=== PATIENT | female | born 1995 | race African-American/Black ===

== ENCOUNTER 2017-03-15 12:02 | Inpatient (IN) ==
[2017-03-15] MEDS ORDERED: ZOFRAN IV PRN (21:29)
[2017-03-15] MEDS ORDERED: STADOL IV PRN ×2 (21:29)
[2017-03-15] MEDS ORDERED: AMBIEN PO PRN (21:29)
[2017-03-15] MEDS ORDERED: PEPCID PO PRN (21:29)
[2017-03-15] MEDS ORDERED: PITOCIN 30 UNITS/LR 30 UNITS/500 ML IV.SOLN IV SCH (21:29)
[2017-03-15] MEDS ORDERED: TYLENOL PO PRN (21:29)
[2017-03-15] MEDS ORDERED: BRETHINE SUBQ PRN (21:29)
[2017-03-15] MEDS ORDERED: PEPCID IV PRN (21:29)
[2017-03-15] MEDS ORDERED: KEFZOL 1 GM/D5W 1 GM/50 ML IVPB IV PRN (21:29)
[2017-03-15] MEDS: LR 1,000 ML IV ONE (21:30)
[2017-03-15 22:28] LABS: URINE SOURCE VOIDED
[2017-03-15 22:28] LABS: MANUAL DIFF NEEDED? NO
[2017-03-15 22:31] LABS: BASO% 0.2 % (0.0-0.8); EOS# 0.04 X1000 (0.0-0.7); EOS% 0.4 % (0.0-10.0); HEMOGLOBIN 11.9 g/dL (12.0-16.0); IMM GRAN# 0.06 X1000 (0.0-0.04); IMM GRAN% 0.7 % (0.0-0.5); LYMPH# 2.18 X1000 (1.2-3.4); LYMPH% 24.1 % (20.5-51.1); MCH 30.7 PG (27-31); MCV 90.2 FL (81-99); MONO# 1.21 X1000 (0.11-0.59); MONO% 13.4 % (1.7-9.3); MPV 11.4 FL (7.4-10.4); NEUT% 61.2 % (42.2-75.2); PLT 234 X1000 (130-400); RBC 3.88 XMIL (4.2-5.4)
[2017-03-15 22:44] LABS: UR AMPHETAMINES QUAL NONE DETECTED (NONE DETECT); UR BARBITUATES QUAL NONE DETECTED (NONE DETECT); UR BENZODIAZEPIN QUAL NONE DETECTED (NONE DETECT); UR CANNABINOIDS QUAL NONE DETECTED (NONE DETECT); UR COCAINE QUAL NONE DETECTED (NONE DETECT); UR MDMA QUAL NONE DETECTED (NONE DETECT); UR METHADONE QUAL NONE DETECTED (NONE DETECT); UR METHAMPHETAMINE QUAL NONE DETECTED (NONE DETECT); UR OPIATES QUAL NONE DETECTED (NONE DETECT); UR OXYCODONE QUAL NONE DETECTED (NONE DETECT); UR PCP QUAL NONE DETECTED (NONE DETECT); UR TCA QUAL NONE DETECTED (NONE DETECT)
[2017-03-15 22:57] LABS: BILIRUBIN URINE NEGATIVE (NEGATIVE); BLOOD URINE NEGATIVE (NEGATIVE); CLARITY CLEAR (CLEAR); COLOR YELLOW; GLUCOSE URINE NEGATIVE (NEGATIVE); LEUKOCYTES URINE NEGATIVE (NEGATIVE); NITRITE URINE NEGATIVE (NEGATIVE); PH URINE 6.5; PROTEIN URINE NEGATIVE (NEGATIVE); SP GRAVITY URINE 1.015; UROBILINOGEN URINE NORMAL
[2017-03-15] MEDS ORDERED: CYTOTEC PO ONE (23:00)
[2017-03-16] MEDS: STADOL IV PRN ×2 (00:22→03:02)
[2017-03-16] MEDS: CYTOTEC PO SCH ×2 (06:38→06:39)
[2017-03-16] MEDS ORDERED: FENTANYL-BUPIV-NS 2 MCG-0.1% 200 ML EPIDURAL PRN (07:11)
[2017-03-16] MEDS: LR 1,000 ML IV ONE ×2 (07:30→08:27)
--- NOTE | 2017-03-16 08:18 | HISTORY AND PHYSICAL ---
CHIEF COMPLAINT: Induction of labor. HISTORY OF PRESENT ILLNESS: The patient is a 21-year-old, G1, P0, who today is at 40 weeks and 5 days by last menstrual period, consistent with a 17 week ultrasound, who presented last night, on March 15, for a routine scheduled induction with Cytotec. She was admitted and did receive Cytotec and was started on Pitocin this morning. She is currently 6 cm per the RN the last cervical exam and she is complaining of nausea and pain with contractions. She does desire an epidural. She has not broken her water. Baby is moving well. She has no other complaints at this time. PAST MEDICAL HISTORY: Significant for anemia of . SURGICAL HISTORY: Oral surgery x2, including wisdom teeth and a tooth removal. MEDICATIONS: She is not taking any. ALLERGIES: No known drug allergies. FAMILY HISTORY: Significant for mother with high blood pressure. SOCIAL HISTORY: She denies alcohol use. Denies current drug use, though had admitted to marijuana in the past. Tobacco use: Is a former smoker, but she admitted approximately twice a month. She currently lives with her boyfriend and is unemployed. PRIMARY CARE PHYSICIAN: [facility]. REVIEW OF SYSTEMS: Negative, except as noted above. PERTINENT LABS: GBS is negative. Quad screen was low risk. She passed her glucose tolerance test at 64. RPR was nonreactive. Blood type is O positive, antibody negative. Rubella immune. Gonorrhea and Chlamydia negative. Urine drug screen was negative. PHYSICAL EXAMINATION: VITAL SIGNS: Temperature 98.5 degrees, blood pressure 127/71, heart rate 72. GENERAL APPEARANCE: The patient is awake, alert, oriented, in moderate distress with contractions. The patient is currently vomiting. ABDOMEN: Soft, gravid, and nontender. PELVIC: Cervical examination at this time was deferred, but per RN report is 6 cm, 100% effaced, and -1 station. EXTREMITIES: No clubbing, cyanosis, or edema. NST 110s, moderate variability, and reactive with early decelerations and irregular contractions. ASSESSMENT AND PLAN: A 21-year-old, G1, at 40 weeks and 5 days for induction of labor. Will allow her to get an epidural and then plan to artificially rupture membranes afterwards and continue with current management. cc: MD FAUSTO Ibarra
[2017-03-16] MEDS ORDERED: MINERAL OIL ONE (08:36)
[2017-03-16] MEDS ORDERED: XYLOCAINE-MPF 1% INJ ONE (08:37)
[2017-03-16] MEDS ORDERED: HYDROXYZINE PO PRN (11:20)
[2017-03-16] MEDS ORDERED: BOOSTRIX VACCINE IM ONE (11:20)
[2017-03-16] MEDS ORDERED: PITOCIN 30 UNITS/LR 30 UNITS/500 ML IV.SOLN IV ONE (11:20)
[2017-03-16] MEDS ORDERED: MINERAL OIL PO PRN (11:20)
[2017-03-16] MEDS ORDERED: M-M-R II VACCINE SUBQ ONE (11:20)
[2017-03-16] MEDS ORDERED: HYDROXYZINE IM PRN (11:20)
[2017-03-16] MEDS ORDERED: BENADRYL IV PRN (11:20)
[2017-03-16] MEDS ORDERED: PITOCIN 20 UNITS/LR 20 UNITS/1,000 ML IV.SOLN IV SCH (11:20)
[2017-03-16] MEDS ORDERED: AMBIEN PO PRN (11:20)
[2017-03-16] MEDS ORDERED: CYTOTEC PO PRN (11:20)
[2017-03-16] MEDS ORDERED: PITOCIN IM PRN (11:20)
[2017-03-16] MEDS ORDERED: BENADRYL PO PRN (11:20)
[2017-03-16] MEDS ORDERED: PERI MEDS (DERMOPLAST/NUPERCAINAL/TUCKS) MISC PRN (11:20)
[2017-03-16] MEDS ORDERED: XYLOCAINE-MPF 1% INJ PRN (11:20)
[2017-03-16] MEDS: MOTRIN PO PRN (12:57)
--- NOTE | 2017-03-16 16:38 | OPERATIVE NOTE ---
PROCEDURE DATE: 03/16/2017 PRE-PROCEDURE DIAGNOSES: 1. 1 at 40 weeks and 5 days. 2. Elective induction of labor. POSTPROCEDURE DIAGNOSES: 1. 1, para 1. 2. Status post spontaneous vaginal delivery. HOSPITAL COURSE: The patient was admitted last night and received 1 dose of Cytotec, and changed her cervix very well. In the morning, she was noted to be 6 cm, 100% and -1 station. She was started on Pitocin briefly, but then this was discontinued as she was able to maintain a good labor pattern without it. She underwent SROM at around 9:10 in the morning, and then advanced to complete through epidural anesthesia. She pushed for a short period of time and then delivered a vigorous male infant over intact perineum through controlled spontaneous vaginal delivery. Body cord x1 was reduced after delivery. Baby was bulb-suctioned and cord was clamped and cut, and baby was handed off to waiting nursery staff. Cord blood was obtained and placenta was then gently massaged from the uterus. The placenta was noted to be intact. Fundus was noted to be firm. Estimated blood loss less than 300 mL. Her vagina, cervix and rectum were inspected for any lacerations, and none were found. The patient tolerated procedure well. All sponge, lap, and needle counts were correct x2, and the patient went to her room in stable condition. cc: Leonarda Shaver MD MTDD
[2017-03-16] MEDS: PERICOLACE PO SCH (20:24)
[2017-03-17 05:20] LABS: HEMATOCRIT 31.9 % (37.0-47.0); HEMOGLOBIN 10.5 g/dL (12.0-16.0); MCH 30.3 PG (27-31); MCHC 32.9 g/dL (33-37); MCV 92.2 FL (81-99); MPV 11.6 FL (7.4-10.4); RBC 3.46 XMIL (4.2-5.4)
[2017-03-17] MEDS: MOTRIN PO PRN ×2 (08:25→16:50)
[2017-03-17] MEDS: NORCO-5 PO PRN ×2 (08:25→16:48)
[2017-03-17] MEDS: PRECARE PO SCH (08:25)
[2017-03-17] MEDS: PERICOLACE PO SCH (20:38)
[2017-03-18] MEDS: PRECARE PO SCH (08:47)
[2017-03-18 09:05] VITALS: BP 116/71
[2017-03-18] MEDS: MOTRIN PO PRN (09:11)
[2017-03-18] MEDS: NORCO-5 PO PRN (09:11)
== END 2017-03-18 17:05 | disposition home or self-care (01) ==
LOC: P.LD 21:26 → P.WC 03-16 13:53
PROVIDERS: ADMIT Obstetrics & Gynecology; ATTEND Obstetrics & Gynecology